=== PATIENT | male | born 1985 | race Two or more races ===

== ENCOUNTER 2025-01-19 06:09 | Emergency (ER) | payer MEDICAID, SELFPAY ==
[2025-01-19 06:11] VITALS: BMI 31.9
[2025-01-19 06:18] VITALS: BP 135/88; PULSE 64; RESP 18; TEMP 36.6; O2SAT 98
[2025-01-19 06:39] LABS: Collection Type, Urine Clean Catch; Squamous Epithelial Cell,Urine 0 /hpf (0-5); WBC,Urine 0 /hpf (0-5)
--- NOTE | 2025-01-19 06:44 | PC.SS ---
SS follow up note; SS set up transportation for patient to get CT Scan at 1500 with [facility].
[2025-01-19 06:47] LABS: Bilirubin,Urine Negative (Negative); Blood,Urine Negative (Negative); Clarity,Urine Clear (Clear/Hazy); Color,Urine Lt-Yellow (Lt Yel-Yel); Culture Indicated,Urine Not Indicated; Glucose, Urine Negative (Negative); Ketones,Urine Negative (Negative); Leukocyte Esterase,Urine Negative (Negative); Nitrite,Urine Negative (Negative); Protein,Urine Negative (Neg - Trace); RBC,Urine < 1 /hpf (0-3); Specific Gravity,Urine 1.016 (1.001-1.035); Urobilinogen,Urine Negative mg/dL (0.0-1.0)
[2025-01-19 07:20] LABS: Basophils % (Auto) 1 % (0-2.5); Eosinophils # (Auto) 0.2 Thou/mm3 (0.0-0.5); Eosinophils % (Auto) 4 % (0-10); Hematocrit 48.9 % (41.0-53.0); Hemoglobin 16.8 g/dL (13.5-16.0); Immature Granulocytes % (Auto) 1 % (0-0); Immature Granulocytes Auto 0.03 Thou/mm3 (0.00-0.00); Lymphocytes # (Auto) 1.3 Thou/mm3 (1.0-4.8); Lymphocytes % (Auto) 21 % (10-50); Mean Corpuscular HGB Conc 34.4 g/dl (31.0-37.0); Mean Corpuscular Hemoglobin 30.1 pg (25.0-35.0); Mean Corpuscular Volume 88 fL (80-100); Monocytes # (Auto) 0.5 Thou/mm3 (0.0-0.8); Monocytes % (Auto) 9 % (0-12); Neutrophils # (Auto) 3.9 Thou/mm3 (1.8-7.7); Neutrophils % (Auto) 65 % (37-80); Nucleated Red Blood Cell % 0 /100 WBC (0); Platelet Count 278 Thou/mm3 (140-440); RDW Standard Deviation 42.4 fL (35.1-43.9); Red Blood Count 5.59 Miln/mm3 (4.50-5.90)
[2025-01-19 07:43] LABS: Alanine Aminotransferase 20 U/L (10-49); Albumin, Serum 4.5 gm/dL (3.5-5.0); Albumin/Globulin Ratio 1.6 (1.2-2.2); Alkaline Phosphatase 71 U/L (46-116); Anion Gap 7 (7-16); Aspartate Amino Transferase 17 U/L (0-34); BUN/Creatinine Ratio 17 Ratio (12-20); Bilirubin,Total 0.9 mg/dL (0.3-1.2); Blood Urea Nitrogen 15 mg/dL (9-23); Calcium 9.1 mg/dL (8.3-10.6); Calcium (Corrected) 9.1 mg/dL (8.5-10.1); Carbon Dioxide 26.6 mMol/L (20.0-31.0); Chloride 104 mMol/L (98-107); Creatinine (Component) 0.9 mg/dL (0.6-1.3); Estimated Creatinine Clearance 120.9 mL/min (>60); Globulin 2.8 gm/dL (2.3-3.5); Glucose 106 mg/dL (74-106); Lipase 37 U/L (12-53); Osmolality,Calculated 276 (275-295); Potassium 4.4 mMol/L (3.4-5.1); Sodium 138 mMol/L (136-145); Total Protein 7.3 gm/dL (5.7-8.2); eGFR > 60 See Note
--- NOTE | 2025-01-19 08:19 | EDNOTE_ITS ---
<Statement entered by Shayla Andre MD - 01/19/25 16:04> As co-signing physician, I was present and available for consult prn. I concur with the plan and care as documented by the midlevel provider. ED Abdominal Pain RME/HPI General Chief Complaint: Abdominal Pain Stated complaint: LOWER ABD PAIN RADAITING TO RIGHT LOWER BACK Time seen by provider: 01/19/25 06:15 Arrival date/time: 01/19/25 06:09 39-year-old male with medical history significant for appendectomy presents emergency department today for complaints of a 1 to 2-week history of abdominal pain. Limitations: no limitations Related Data Previous Rx's ?Medication ?Instructions ?Recorded cephalexin 500 mg capsule 500 mg PO BID #20 caps 02/05 Allergies Allergy/AdvReac Type Severity Reaction Status Date / Time No Known Allergies Allergy Verified 01/19/25 06:10 Review of Systems Review of Systems Systems Reviewed: All systems reviewed, normal except as documented Constitutional Constitutional: Reports system reviewed and no additional complaints, except as documented, Denies fever(s) and Denies headache(s) Eyes Eyes: Reports system reviewed and no additional complaints, except as documented and Denies blurry vision ENT Ears, Nose, Mouth, and Throat: Reports system reviewed and no additional complaints, except as documented, Denies headache(s), Denies nasal congestion and Denies nasal discharge Cardiovascular Cardiovascular: Reports system reviewed and no additional complaints, except as documented, Denies chest pain and Denies dyspnea Respiratory Respiratory: Reports system reviewed and no additional complaints, except as documented, Denies chest congestion, Denies cough and Denies dyspnea Gastrointestinal Gastrointestinal: Reports system reviewed and no additional complaints, except as documented and Reports abdominal pain Integumentary/Breasts Skin/Breast: Reports system reviewed and no additional complaints, except as documented and Denies rash Neurologic Neurologic: Reports system reviewed and no additional complaints, except as documented, Reports as per HPI and Denies headache(s) Past Medical History Past Medical History CARDIAC: Negative Cardiac Disorders or Congestive Heart Failure RESPIRATORY: Negative Chronic Obstructive Pulmonary Disease (COPD) or Asthma GENITOURINARY: Negative Renal Disease ENDOCRINE: Negative Diabetes Mellitus Type 1 or Diabetes Mellitus Type 2 HEMATOLOGIC: Negative Sickle Cell Disease Social History SMOKING STATUS: Never smoker ED Exam General Limitations: Present no limitations General appearance: Present alert and in no apparent distress Head Head exam: Present atraumatic, normocephalic and normal inspection Eye Eye exam: Present normal appearance, PERRL and EOMI; Absent conjunctival injection ENT ENT exam: Present normal exam, normal oropharynx and mucous membranes moist Neck Neck exam: Present normal inspection, full ROM and trachea midline Chest Chest inspection: Present normal inspection and symmetric chest wall rise Respiratory Respiratory exam: Present normal lung sounds bilaterally; Absent respiratory distress Cardiovascular Cardiovascular exam: Present regular rate, normal rhythm and normal heart sounds Abdominal Exam Abdominal exam: Present soft and normal bowel sounds; Absent distention, tenderness, guarding, rebound or rigidity Extremities Exam Extremities exam: Present normal inspection and full ROM Back Exam Back exam: Present normal inspection and full ROM Neurological Exam Neurological exam: Present alert, oriented X3, CN II-XII intact, normal gait and reflexes normal; Absent motor sensory deficit Psychiatric Psychiatric exam: Present normal affect and normal mood Skin Skin exam: Present warm, dry, intact and normal color; Absent rash Course Quality Measures none Orders Category Date Time Status CT abdomen pelvis wo con Stat Exams 01/19/25 06:22 Ordered CBC Stat Lab 01/19/25 07:14 Completed Comprehensive Metabolic Panel Stat Lab 01/19/25 07:14 Completed Lipase Stat Lab 01/19/25 07:14 Completed UA, C/S IF [Urinalysis, C/S if Indicated] Stat Lab 01/19/25 06:30 Completed Vital Signs Vital signs: Vital Signs Temperature 97.9 F 01/19/25 06:18 Pulse Rate 64 01/19/25 06:18 Respiratory Rate 18 01/19/25 06:18 Blood Pressure 135/88 H 01/19/25 06:18 Pulse Oximetry (%) 98 01/19/25 06:18 Oxygen Delivery Method Room Air 01/19/25 06:18 O2 saturation 98% room air within normal limits Abdominal Pain MDM MDM Narrative MDM Narrative:: 39-year-old male with medical history significant for appendectomy presents emergency department today for complaints of a 1 to 2-week history of abdominal pain. On exam patient does not appear ill or toxic in no acute distress patient has soft nontender abdomen patient walks with steady gait Lab work obtained no acute emergent findings noted Initially CT scan was ordered but I was informed by nursing staff that the patient CT scan would not get done till 3 PM today as a patient we had to be transported across the street as the main CT scan in the hospital is down. I did give the patient the option of waiting patient reports he rather go home at this time to follow-up on an outpatient basis and should his symptoms persist he will return for reevaluation Patient data External records reviewed:: [facility] previous records Clinical information provided by:: patient Social determinants that could affect healthcare access:: none Patient has the following chronic illnesses:: None How is presenting disease/condition affected by chronic disease/condition?: no chronic disease Evaluation data The following diagnostics were reviewed and interpreted by me:: lab results Lab and/or radiology exams considered but not ordered:: Labs obtained Interpretation Summary: Reviewed by me Medications / Prescriptions Medications or Prescriptions considered but not ordered:: No meds Medication administrations:: No meds Consultations Consultation(s) initiated? (list below): No Diagnosis Differential diagnosis abdominal pain: abdominal pain, calculus of kidney, constipation, pancreatitis and small bowel obstruction Most likely diagnosis given after review of the tests above:: Abdominal pain Admission Indicated Admission indicated?: not indicated Admission Request Was there a request for admission?: No Disposition Plan Disposition Plan: Discharge Discharge Attestation Discharge Attestation: The patient and all family members were given an opportunity to ask questions and understood the discharge instructions. Discharge instructions specifically effects, indications for sooner follow up or return to the emergency department, and the expected course of current diagnosis. Patient condition: Stable Discharge Plan Plan Patient Disposition: HOME (Self Care) Disposition Comment: Stable Prescriptions/Referrals Prescriptions/Med Rec: No Action cephalexin 500 mg capsule 500 mg PO BID Qty: 20 0RF Referrals: Ramin Marcial MD [Primary Care Provider] - In 1 week Problem List Clinical Impression: Abdominal pain Patient/Caregiver Discharge Instructions Education Materials: Measuring Your Pain Additional Instructions: Please follow up with your primary care doctor in the next 24-48hrs for any worsening symptoms return here immediately If your symptoms persist or worsen I do encourage you to return for reevaluation possible CT scan Print Language: Slovenian Stand Alone Forms: Shelly Award Info., Patient Portal Info Letter PA/CREEL SELECTOR Supervising Physician PA/ELBERT Supervising Physician: Dr. ANDRE
== END 2025-01-19 08:29 | disposition home or self-care (01) ==
PROVIDERS: Nurse Practitioner Primary Care; Emergency Provider Emergency Medicine; PCP Family Medicine
DX: R10.30 Lower abdominal pain, unspecified (principal); Z90.49 Acquired absence of other specified parts of digestive tract
CPT/HCPCS: 36415; 80053; 81001; 83690; 85025; 99284

== ENCOUNTER 2025-01-22 05:32 | Emergency (ER) | payer MEDICAID, SELFPAY ==
[2025-01-22 05:32] VITALS: BMI 31.9
[2025-01-22 05:39] VITALS: BP 138/84; PULSE 66; RESP 18; TEMP 36.6; O2SAT 96
--- NOTE | 2025-01-22 05:47 | PD.EDRME ---
Rapid Medical Screening Exam [facility] Arrival date/time: 01/22/25 05:32 39M with history of appendectomy presents to ED with worsening ab pain and some non-bloody diarrhea and N/V. Patient was told to come back because CT was done a few days ago. Chief Complaint: Abdominal Pain Vital signs: Vital Signs Temperature 97.8 F 01/22/25 05:39 Pulse Rate 66 01/22/25 05:39 Respiratory Rate 18 01/22/25 05:39 Blood Pressure 138/84 H 01/22/25 05:39 Pulse Oximetry (%) 96 01/22/25 05:39 Oxygen Delivery Method Room Air 01/22/25 05:39
[2025-01-22 06:20] LABS: Basophils % (Auto) 1 % (0-2.5); Eosinophils # (Auto) 0.2 Thou/mm3 (0.0-0.5); Eosinophils % (Auto) 3 % (0-10); Hemoglobin 16.5 g/dL (13.5-16.0); Immature Granulocytes % (Auto) 0 % (0-0); Immature Granulocytes Auto 0.01 Thou/mm3 (0.00-0.00); Lymphocytes # (Auto) 1.6 Thou/mm3 (1.0-4.8); Lymphocytes % (Auto) 25 % (10-50); Mean Corpuscular HGB Conc 34.4 g/dl (31.0-37.0); Mean Corpuscular Hemoglobin 29.7 pg (25.0-35.0); Mean Corpuscular Volume 87 fL (80-100); Monocytes # (Auto) 0.5 Thou/mm3 (0.0-0.8); Monocytes % (Auto) 8 % (0-12); Neutrophils # (Auto) 4.1 Thou/mm3 (1.8-7.7); Neutrophils % (Auto) 63 % (37-80); Nucleated Red Blood Cell % 0 /100 WBC (0); Platelet Count 281 Thou/mm3 (140-440); RDW Standard Deviation 41.3 fL (35.1-43.9); Red Blood Count 5.55 Miln/mm3 (4.50-5.90); White Blood Count 6.6 Thou/mm3 (3.8-10.6)
[2025-01-22 06:39] LABS: Alanine Aminotransferase 23 U/L (10-49); Albumin, Serum 4.6 gm/dL (3.5-5.0); Albumin/Globulin Ratio 1.6 (1.2-2.2); Alkaline Phosphatase 77 U/L (46-116); Anion Gap 7 (7-16); Aspartate Amino Transferase 18 U/L (0-34); BUN/Creatinine Ratio 15 Ratio (12-20); Bilirubin,Total 0.5 mg/dL (0.3-1.2); Blood Urea Nitrogen 15 mg/dL (9-23); Calcium 9.1 mg/dL (8.3-10.6); Calcium (Corrected) 9.1 mg/dL (8.5-10.1); Carbon Dioxide 28.2 mMol/L (20.0-31.0); Chloride 105 mMol/L (98-107); Estimated Creatinine Clearance 108.8 mL/min (>60); Globulin 2.8 gm/dL (2.3-3.5); Glucose 98 mg/dL (74-106); Lipase 47 U/L (12-53); Osmolality,Calculated 280 (275-295); Potassium 4.2 mMol/L (3.4-5.1); Sodium 140 mMol/L (136-145); Total Protein 7.4 gm/dL (5.7-8.2); eGFR > 60 See Note
--- NOTE | 2025-01-22 07:22 | XR_ITS ---
Examination: CT abdomen and pelvis without contrast. Coronal 3-D reconstructions. Sagittal 2-D reconstructions. Date and time of exam:January 22, 2025 at 0759 hrs. Comparison February 05, 2022 Indications: Lower pelvic pain beginning one week ago CTDI: vol (mGy): 9.92 DLP: (mGycm): 591 Technique: Axial images of the abdomen have been obtained, 3 mm slice thickness Intravenous contrast material has not been administered. Low dose protocols were performed. One or more of the following dose reduction techniques were used; automated exposure control, adjustment of the mA and/or KV according to patient size, use of iterative reconstruction technique. Findings: No focal liver or splenic lesion No pancreatic mass or peripancreatic edema Absent appendix No renal or ureteral calculi, no hydronephrosis No bladder mass Impression: No acute process
[2025-01-22 07:53] VITALS: BP 128/83; PULSE 68; RESP 18; TEMP 36.7; O2SAT 96
--- NOTE | 2025-01-22 08:47 | PRELIM_ITS ---
CT abdomen and pelvis without intravenous or oral contrast. Axial images with coronal and sagittal reconstructions. Findings: Clear lung bases. Liver, gallbladder, spleen, adrenal glands, pancreas and kidneys are unremarkable. Post appendectomy. The urinary bladder is decompressed, limiting evaluation. No urinary tract stone or obstruction is identified. No free intraperitoneal air or fluid. The abdominal wall is unremarkable. Bowel caliber is normal. No acute osseous process. Impression: No acute process of the abdomen or pelvis on this noncontrast examination. Report Electronically Signed By: Manpreet Greenwood 01/22/2025 8:46:37 AM [EST]
--- NOTE | 2025-01-22 11:33 | PD.EDABDPN ---
ED Abdominal Pain RME/HPI General Chief Complaint: Abdominal Pain Stated complaint: ABD PAIN Time seen by provider: 01/22/25 07:21 Arrival date/time: 01/22/25 05:32 39M with history of appendectomy presents to ED with worsening ab pain and some non-bloody diarrhea and N/V. Patient was told to come back because CT was down a few days ago. Limitations: no limitations RME / HPI RME / HPI narrative: 01/22/25 05:32 39M with history of appendectomy presents to ED with worsening ab pain and some non-bloody diarrhea and N/V. Patient was told to come back because CT was done a few days ago. Related Data Previous Rx's ?Medication ?Instructions ?Recorded cephalexin 500 mg capsule 500 mg PO BID #20 caps 02/05/22 Allergies Allergy/AdvReac Type Severity Reaction Status Date / Time No Known Allergies Allergy Verified 01/19/25 06:10 Review of Systems Review of Systems Systems Reviewed: All systems reviewed, normal except as documented Constitutional Constitutional: Reports system reviewed and no additional complaints, except as documented, Denies fever(s) and Denies headache(s) Eyes Eyes: Reports system reviewed and no additional complaints, except as documented and Denies blurry vision ENT Ears, Nose, Mouth, and Throat: Reports system reviewed and no additional complaints, except as documented, Denies headache(s), Denies nasal congestion and Denies nasal discharge Cardiovascular Cardiovascular: Reports system reviewed and no additional complaints, except as documented, Denies chest pain and Denies dyspnea Respiratory Respiratory: Reports system reviewed and no additional complaints, except as documented, Denies chest congestion, Denies cough and Denies dyspnea Gastrointestinal Gastrointestinal: Reports system reviewed and no additional complaints, except as documented, Reports abdominal pain, Reports loose stools and Denies nausea Integumentary/Breasts Skin/Breast: Reports system reviewed and no additional complaints, except as documented and Denies rash Neurologic Neurologic: Reports system reviewed and no additional complaints, except as documented, Reports as per HPI and Denies headache(s) Past Medical History Past Medical History CARDIAC: Negative Cardiac Disorders or Congestive Heart Failure RESPIRATORY: Negative Chronic Obstructive Pulmonary Disease (COPD) or Asthma GENITOURINARY: Negative Renal Disease ENDOCRINE: Negative Diabetes Mellitus Type 1 or Diabetes Mellitus Type 2 HEMATOLOGIC: Negative Sickle Cell Disease Social History SMOKING STATUS: Never smoker ED Exam General Limitations: Present no limitations General appearance: Present alert and in no apparent distress Head Head exam: Present atraumatic Eye Eye exam: Present normal appearance, PERRL and EOMI ENT ENT exam: Present normal exam, normal oropharynx and mucous membranes moist Neck Neck exam: Present normal inspection, full ROM and trachea midline Chest Chest inspection: Present normal inspection and symmetric chest wall rise Respiratory Respiratory exam: Present normal lung sounds bilaterally Cardiovascular Cardiovascular exam: Present regular rate, normal rhythm and normal heart sounds Abdominal Exam Abdominal exam: Present soft and normal bowel sounds Extremities Exam Extremities exam: Present normal inspection and full ROM Back Exam Back exam: Present normal inspection and full ROM Neurological Exam Neurological exam: Present alert, oriented X3 and CN II-XII intact Psychiatric Psychiatric exam: Present normal affect and normal mood Skin Skin exam: Present warm, dry, intact and normal color Course Quality Measures none Orders Category Date Time Status Insert IV NOW Care 01/22/25 05:[address] abdomen pelvis wo con Stat Exams 01/22/25 07:22 Completed CBC Stat Lab 01/22/25 06:08 Completed CMP [Comprehensive Metabolic Panel] Stat Lab 01/22/25 06:08 Completed Lipase Stat Lab 01/22/25 06:08 Completed Vital Signs Vital signs: Vital Signs Temperature 97.8 F 01/22/25 05:39 Pulse Rate 66 01/22/25 05:39 Respiratory Rate 18 01/22/25 05:39 Blood Pressure 138/84 H 01/22/25 05:39 Pulse Oximetry (%) 96 01/22/25 05:39 Oxygen Delivery Method Room Air 01/22/25 05:39 O2 saturation 96% on room air within limits Abdominal Pain MDM MDM Narrative MDM Narrative:: 39M with history of appendectomy presents to ED with worsening ab pain and some non-bloody diarrhea and N/V. Patient was told to come back because CT was down a few days ago. I do remember this patient from last visit at that time the CT scanner was down patient was requesting a CT at that time. Patient opted to leave at that time and reports that he would return should his symptoms persist or worsen Patient presents back today because his symptoms persist patient reports generalized abdominal pain patient cannot pinpoint the pain Lab work as well as imaging obtained no acute emergent findings noted Patient discharged home in no distress to follow-up with primary care doctor in the next 24 to 48 hours no regular referral to GI and for any worsening symptoms to return to the ER immediately Patient data External records reviewed:: [facility] previous records Clinical information provided by:: patient Social determinants that could affect healthcare access:: none Patient has the following chronic illnesses:: None How is presenting disease/condition affected by chronic disease/condition?: no chronic disease Evaluation data The following diagnostics were reviewed and interpreted by me:: lab results and radiology exam(s) Lab and/or radiology exams considered but not ordered:: Labs radiology obtained Interpretation Summary: Reviewed by me Medications / Prescriptions Medications or Prescriptions considered but not ordered:: No meds Medication administrations:: Meds given Consultations Consultation(s) initiated? (list below): No Diagnosis Differential diagnosis abdominal pain: abdominal pain, calculus of kidney, constipation, pancreatitis and small bowel obstruction Most likely diagnosis given after review of the tests above:: Abdominal pain Admission Indicated Admission indicated?: not indicated Admission Request Was there a request for admission?: No Disposition Plan Disposition Plan: Discharge Discharge Attestation Discharge Attestation: The patient and all family members were given an opportunity to ask questions and understood the discharge instructions. Discharge instructions specifically effects, indications for sooner follow up or return to the emergency department, and the expected course of current diagnosis. Patient condition: Stable Discharge Plan Plan Patient Disposition: HOME (Self Care) Disposition Comment: Stable Prescriptions/Referrals Prescriptions/Med Rec: No Action cephalexin 500 mg capsule 500 mg PO BID Qty: 20 0RF Referrals: Ramin Marcial MD [Primary Care Provider] - In 1 week Problem List Clinical Impression: Abdominal pain Patient/Caregiver Discharge Instructions Education Materials: Abdominal Pain Additional Instructions: Please follow-up with your primary care doctor for referral to GI for worsening symptoms or concerns return immediately Print Language: Malay Stand Alone Forms: Shelly Award Info., Work/School Release, Patient Portal Info Letter DAYDAY/ELBERT Supervising Physician DAYDAY/ELBERT Supervising Physician: Dr finch
== END 2025-01-22 11:53 | disposition home or self-care (01) ==
PROVIDERS: Physician Assistant; Emergency Provider Emergency Medicine; PCP Family Medicine
DX: R10.9 Unspecified abdominal pain (principal)
CPT/HCPCS: 36415; 74176; 80053; 83690; 85025; 99284

== ENCOUNTER 2025-09-22 11:03 | Emergency (ER) | payer MEDICAID, SELFPAY ==
[2025-09-22 11:31] VITALS: BP 127/87; PULSE 75; RESP 16; TEMP 36.9; O2SAT 96; BMI 31.7
--- NOTE | 2025-09-22 11:56 | PD.EDMALE ---
ED Male Genitalurinary RME/HPI General Chief complaint: Urogenital-Male Stated complaint: Left abdominal pain X 2 weeks, dripping from penis Time Seen by Provider: 09/22/25 11:56 Arrival date/time: 09/22/25 11:03 RME / HPI RME / HPI Narrative: Healthy 40-year-old male who saw his primary doctor yesterday for some left-sided flank pain associated with urinary frequency which has been ongoing for about 6 months, he had a negative UA yesterday with his PCP yesterday. Patient states he had an ultrasound at time of onset and this was unremarkable as well. Denies any fever, nausea, vomiting, diarrhea. Related Data Previous Rx's ?Medication ?Instructions ?Recorded cephalexin 500 mg capsule 500 mg PO BID #20 caps 02/05/22 levofloxacin 500 mg tablet 500 mg PO QDAY #7 tabs 09/22/25 Allergies Allergy/AdvReac Type Severity Reaction Status Date / Time No Known Allergies Allergy Verified 09/22/25 11:08 ED Exam Narrative Physical exam: Constitutional: Patient alert and oriented. Well appearing. No acute distress. Not toxic appearing. Head: Normocephalic, atraumatic. Eyes: Periorbital regions bilaterally normal to inspection. Conjunctiva clear bilaterally. Sclera anicteric bilaterally. Pupils equal, round, reactive to light bilaterally. Extraocular movements intact bilaterally. Mouth/Throat: Mucous membranes moist. No stridor or muffled voice. No trismus. Handling secretions without difficulty. Airway widely patent. Neck: Supple. Trachea midline. No JVD. No nuchal rigidity. Normal range of motion. Respiratory: Normal effort. No accessory muscle use or respiratory distress. Lungs clear to auscultation bilaterally without rhonchi, wheezes, or crackles. Cardiovascular: RRR. Normal S1/S2. No murmurs or rubs. Radial pulses intact bilaterally. Abdomen: Soft. Non-distended. Positive mild left lower quadrant tenderness to palpation. No pulsatile mass. No guarding or rebound. Negative Hickey?s sign. Negative McBurney?s point tenderness. Negative Rovsing?s. Back: No midline tenderness or step-offs. +L CVA TTP. : No scrotal edema, tenderness, or rashes bilaterally. Patient is uncircumcised. No urethral discharge. Positive mild perineal tenderness. No anal corrugation tenderness. Upper Extremities: No gross deformities. Lower Extremities: No gross deformities. No edema or calf tenderness. Neuro: Speech normal. No gross motor or sensory deficits to upper or lower extremities bilaterally. GCS 15. CN II?XII grossly intact. Skin: Warm, dry, normal color. Psych: Normal affect. Cooperative. Normal insight. Course Course Course Narrative: MDM: The patient presents with abdominal pain without definite explanation found on evaluation today. CT scan is concerning for mild perinephric stranding bilaterally without acute urologic obstruction as well as a fat-containing umbilical hernia. However there is no other signs of acute intra-abdominal or pelvic abnormality however, there are no signs of peritonitis or other life-threatening or serious etiology. UA is unremarkable and CBC and CMP are relatively unremarkable aside from hemoglobin being minimally elevated 17. Risk and benefits of empiric treatment for STI discussed with patient who is requesting treatment for gonorrhea chlamydia. I considered prostatitis as well however given lack of fever this is unlikely. Given patient has possible evidence of mild or early pyelonephritis based on CT scan I will treat patient with Levaquin and ceftriaxone accordingly to additionally cover him for gonorrhea and chlamydia. I considered admission; however, given negative work up and imaging, admission is not indicated. Serial abdominal exams were benign throughout the ED stay, and the patient tolerated oral intake without difficulty. The inherent uncertainty with undifferentiated abdominal pain was emphasized, and strict return precautions were provided. The patient has been instructed that this presentation could represent an early acute abdominal process. The plan is for mandatory re-evaluation within 24 hours and immediate return for worsening, persistence, or change in symptoms. The patient may follow up with their primary care provider or return to the ED as appropriate. The patient appears stable for discharge at this time. Patient also to follow-up with urologist this week for further evaluation. Quality Measures none Orders Category Date Time Status NPO NOW Care 09/22/25 13:20 Active Diet NPO (NOW) Diet 09/22/25 13:[address] abdomen pelvis wo con Stat Exams 09/22/25 13:20 Completed CBC Stat Lab 09/22/25 13:24 Completed CMP [Comprehensive Metabolic Panel] Stat Lab 09/22/25 13:24 Completed Lipase Stat Lab 09/22/25 13:24 Completed Urinalysis Stat Lab 09/22/25 13:55 Completed Urine Culture Stat Lab 09/22/25 13:55 Received Ketorolac Inj [Toradol Inj] Med 09/22/25 13:20 Discontinued 30 mg IM X1 ONE Ondansetron Odt [Zofran Odt] Med 09/22/25 13:20 Discontinued 4 mg PO X1 ONE cefTRIAXone [Rocephin] 1,000 mg Med 09/22/25 17:46 Ordered Lidocaine 1% Pf Vial 5ml [Xylocaine 1% Pf 5 ml] 2.1 ml IM X1 Reevaluation(s) Reevaluation #1: At the time of reassessment prior to discharge, the patient remains alert and oriented ?3 with GCS 15. Vitals are normal, pain is controlled, and the patient is tolerating oral intake without nausea or vomiting. The patient is agreeable to discharge and verbalizes understanding of the diagnosis, studies, treatment plan, medications (including side effects/precautions), and strict ER return precautions as discussed in the ED. All concerns were addressed, and the patient is comfortable with the plan. Time: 18:00 Vital Signs Vital signs: Vital Signs Temperature 98.5 F 09/22/25 11:31 Pulse Rate 75 09/22/25 11:31 Respiratory Rate 16 09/22/25 11:31 Blood Pressure 127/87 H 09/22/25 11:31 Pulse Oximetry (%) 96 09/22/25 11:31 Oxygen Delivery Method Room Air 09/22/25 11:31 Urogenital - Male MDM Narrative MDM Narrative:: 40-year-old male presents to the ER complaining of left-sided flank pain for the past 6 months. Patient data External records reviewed:: [facility] previous records Clinical information provided by:: patient Social determinants that could affect healthcare access:: none Patient has the following chronic illnesses:: As noted How is presenting disease/condition affected by chronic disease/condition?: uneffected by Evaluation data The following diagnostics were reviewed and interpreted by me:: other (specify) Lab and/or radiology exams considered but not ordered:: Additional Labs and radiology considered, but not ordered as they were not clinically indicated at this time. Interpretation Summary: As noted Medications / Prescriptions Medications or Prescriptions considered but not ordered:: I ordered medications based on the patient?s clinical needs and assessment, as documented in the chart. For medications not prescribed, they were not indicated for the patient's current condition, and I determined they were unnecessary at this time to avoid potential risks or complications. Medication administrations:: Medication Administration History Ceftriaxone Sodium 1,000 mg/ (Lidocaine HCl 2.1 ml) 0 mg IM X1 ONE Stop: 09/22/25 17:47 Discontinued Medications Ketorolac Tromethamine (Ketorolac Inj 30 Mg/Ml Vial) 30 mg IM X1 ONE Stop: 09/22/25 13:21 Last Admin: 09/22/25 13:31 Dose: 30 mg Documented By: MARIFER Ondansetron HCl (Ondansetron Odt 4 Mg Tabrap) 4 mg PO X1 ONE; Protocol Stop: 09/22/25 13:21 Last Admin: 09/22/25 13:31 Dose: 4 mg Documented By: MARIFER As noted Consultations Consultation(s) initiated? (list below): No Diagnosis Urogenital Male Differential Diagnosis: urinary tract infection, urethritis and prostatitis Most likely diagnosis given after review of the tests above:: Pyelonephritis versus umbilical hernia without signs of incarceration and no bowel Admission Indicated Admission indicated?: not indicated Admission Request Was there a request for admission?: No Disposition Plan Disposition Plan: Discharge Discharge Attestation Discharge Attestation: The patient and all family members were given an opportunity to ask questions and understood the discharge instructions. Discharge instructions specifically effects, indications for sooner follow up or return to the emergency department, and the expected course of current diagnosis. Patient condition: Stable Discharge Plan Plan Patient Disposition: HOME (Self Care) Patient condition on transfer: Stable Prescriptions/Referrals Prescriptions/Med Rec: New levofloxacin 500 mg tablet 500 mg PO QDAY Qty: 7 0RF No Action cephalexin 500 mg capsule 500 mg PO BID Qty: 20 0RF Referrals: Ramin Marcial MD [Primary Care Provider, Family Practice] - In 1 week Problem List Clinical Impression: Acute pyelonephritis, Abdominal pain Patient/Caregiver Discharge Instructions Education Materials: ED Pyelonephritis, Male (Adult) Additional Instructions: Follow up with your primary medical doctor within 24 hours. Return to the Emergency Room immediately for any new, worsening, continuing symptoms or any concerns at all. Return to the Emergency Room within 24 hours if you are unable to follow up with your primary medical doctor within 24 hours. Follow-up with a urologist this week as well. Your primary care doctor will need to refer you to one. The antibiotics which I am prescribing you can cause tendon rupture please avoid strenuous activity for the next several months. Print Language: Portuguese Stand Alone Forms: Shelly Award Info., Patient Portal Info Letter PA/AMPOULE SEALER Supervising Physician PA/AMPOULE SEALER Supervising Physician: Dr. Waller
--- NOTE | 2025-09-22 13:20 | XR_ITS ---
Examination: CT abdomen and pelvis without contrast. Coronal 3-D reconstructions. Sagittal 2-D reconstructions. Date and time of exam: September 22, 2025, 1328 hours INDICATIONS: Periumbilical perirectal pain beginning 2 days ago, comparison January 22, 2025 CTDI: vol (mGy): 9.3 DLP: (mGycm): 600 Technique: Axial images of the abdomen have been obtained, 3 mm slice thickness Intravenous contrast material has not been administered. Low dose protocols were performed. One or more of the following dose reduction techniques were used; automated exposure control, adjustment of the mA and/or KV according to patient size, use of iterative reconstruction technique. Findings: No focal liver lesions or biliary tract dilatation Spleen pancreas unremarkable No gallstones 11 mm fat-containing umbilical hernia Minimal perinephric stranding No renal or ureteral calculi, no hydronephrosis Absent appendix No bowel obstruction diverticulitis or free air IMPRESSION: 11 mm fat-containing umbilical hernia No rectal wall thickening No perianal abscess
[2025-09-22] MEDS: ONDANSETRON ODT 4 MG TABRAP PO (13:31)
[2025-09-22] MEDS: KETOROLAC INJ 30 MG/ML VIAL IM (13:31)
[2025-09-22 13:38] LABS: Basophils # (Auto) 0.0 Thou/mm3 (0.0-0.2); Basophils % (Auto) 1 % (0-2.5); Eosinophils # (Auto) 0.1 Thou/mm3 (0.0-0.5); Eosinophils % (Auto) 2 % (0-10); Hematocrit 49.1 % (41.0-53.0); Hemoglobin 17.0 g/dL (13.5-16.0); Immature Granulocytes Auto 0.01 Thou/mm3 (0.00-0.00); Lymphocytes # (Auto) 1.3 Thou/mm3 (1.0-4.8); Lymphocytes % (Auto) 21 % (10-50); Mean Corpuscular HGB Conc 34.6 g/dl (31.0-37.0); Mean Corpuscular Hemoglobin 30.2 pg (25.0-35.0); Mean Corpuscular Volume 87 fL (80-100); Monocytes # (Auto) 0.5 Thou/mm3 (0.0-0.8); Monocytes % (Auto) 8 % (0-12); Neutrophils # (Auto) 4.4 Thou/mm3 (1.8-7.7); Neutrophils % (Auto) 69 % (37-80); Nucleated Red Blood Cell # 0.00 Thou/mm3 (0.00-0.00); Nucleated Red Blood Cell % 0 /100 WBC (0); Platelet Count 298 Thou/mm3 (140-440); RDW Standard Deviation 41.6 fL (35.1-43.9); Red Blood Count 5.62 Miln/mm3 (4.50-5.90); White Blood Count 6.4 Thou/mm3 (3.8-10.6)
[2025-09-22 13:52] LABS: Alanine Aminotransferase 38 U/L (10-49); Albumin, Serum 4.9 gm/dL (3.5-5.0); Albumin/Globulin Ratio 1.6 (1.2-2.2); Alkaline Phosphatase 71 U/L (46-116); Anion Gap 11 (7-16); Aspartate Amino Transferase 23 U/L (0-34); BUN/Creatinine Ratio 14 Ratio (12-20); Bilirubin,Total 0.4 mg/dL (0.3-1.2); Blood Urea Nitrogen 15 mg/dL (9-23); Calcium 9.4 mg/dL (8.3-10.6); Calcium (Corrected) 9.4 mg/dL (8.5-10.1); Carbon Dioxide 26.0 mMol/L (20.0-31.0); Chloride 103 mMol/L (98-107); Creatinine (Component) 1.1 mg/dL (0.6-1.3); Estimated Creatinine Clearance 97.7 mL/min (>60); Globulin 3.0 gm/dL (2.3-3.5); Glucose 105 mg/dL (74-106); Lipase 35 U/L (12-53); Osmolality,Calculated 280 (275-295); Potassium 4.1 mMol/L (3.4-5.1); Sodium 140 mMol/L (136-145); Total Protein 7.9 gm/dL (5.7-8.2); eGFR > 60 See Note
[2025-09-22 14:00] LABS: Collection Type, Urine Voided; Squamous Epithelial Cell,Urine 0 /hpf (0-5); WBC,Urine 0 /hpf (0-5)
[2025-09-22 14:04] LABS: Bilirubin,Urine Negative (Negative); Blood,Urine Negative (Negative); Clarity,Urine Clear (Clear/Hazy); Color,Urine Lt-Yellow (Lt Yel-Yel); Glucose, Urine Negative (Negative); Ketones,Urine Negative (Negative); Leukocyte Esterase,Urine Negative (Negative); Nitrite,Urine Negative (Negative); PH,Urine 6.0 (5.0-7.0); Protein,Urine Negative (Neg - Trace); RBC,Urine 1 /hpf (0-3); Specific Gravity,Urine 1.021 (1.001-1.035); Urobilinogen,Urine Negative mg/dL (0.0-1.0)
== END 2025-09-22 18:15 | disposition home or self-care (01) ==
PROVIDERS: Emergency Provider Physician Assistant; PCP Family Medicine
DX: N10 Acute pyelonephritis (principal)
CPT/HCPCS: 36415; 74176; 80053; 81001; 83690; 85025; 87086; 96372; 99283; J0696; J1885; J3490; Q0162

== ENCOUNTER 2025-10-04 10:52 | Emergency (ER) | payer MEDICAID, SELFPAY ==
--- NOTE | 2025-10-04 10:57 | EKG_ITS ---
[facility] Test Date: 2025-10-04 Pat Name: DAIN GILL Department: Room: - Gender: Male Healthcare Interpreter: : 1985 Requested By: Tyesha Fox Order Number: [id number] Reading MD: Tyesha Fox Measurements Intervals [place] Rate: 79 P: 39 MI: 184 QRS: 55 QRSD: 102 T: 42 QT: 348 QTc: 401 Interpretive Statements SINUS RHYTHM LOW QRS VOLTAGE IN PRECORDIAL LEADS [QRS DEFLECTION < 1.0 mV IN CHEST LEADS] NONSPECIFIC ST & T-WAVE ABNORMALITY No previous ECG available for comparison /store/S0/[id number]/ecg/[id number].pdf
[2025-10-04 11:03] VITALS: BP 141/89; PULSE 77; RESP 18; TEMP 36.8; O2SAT 95; BMI 31.6
--- NOTE | 2025-10-04 11:20 | XR_ITS ---
Examination: CT abdomen and pelvis without contrast. Coronal 3-D reconstructions. Sagittal 2-D reconstructions. Date and time of exam: October 04, 2025, 1128 hours, comparison September 22, 2025 INDICATIONS: Left upper abdominal pain with nausea vomiting diarrhea beginning 3 days ago CTDI: vol (mGy): 10.1 DLP: (mGycm): 617 Technique: Axial images of the abdomen have been obtained, 3 mm slice thickness Intravenous contrast material has not been administered. Low dose protocols were performed. One or more of the following dose reduction techniques were used; automated exposure control, adjustment of the mA and/or KV according to patient size, use of iterative reconstruction technique. Findings: No visualized liver or splenic lesion Fluid distended stomach No gallstones No pancreatic or adrenal mass No renal or ureteral calculi, no hydronephrosis Absent appendix 11 mm fat-containing umbilical hernia No bowel obstruction No diverticulitis Intact urinary bladder Transverse prostate dimension 4.0 cm Intact osseous structures IMPRESSION: Fluid distended stomach Negative for gallstones Negative for pancreatitis No renal or ureteral calculi, no hydronephrosis No bowel obstruction Consider hepatobiliary sonography follow-up
--- NOTE | 2025-10-04 11:20 | PD.EDRME ---
Rapid Medical Screening Exam RME Arrival date/time: 10/04/25 10:52 40-year-old male with no known medical history presents to the emergency room with a chief complaint of left upper quadrant and lumbar back pain x 3 days I have greeted and performed a focused initial assessment of this patient. A comprehensive ED assessment and evaluation of the patient, analysis of all test results, and completion of the medical decision making process will be conducted by additional ED providers. Chief Complaint: Chest Pain Vital signs: Vital Signs Temperature 98.2 F 10/04/25 11:03 Pulse Rate 77 10/04/25 11:03 Respiratory Rate 18 10/04/25 11:03 Blood Pressure 141/89 H 10/04/25 11:03 Pulse Oximetry (%) 95 10/04/25 11:03 Oxygen Delivery Method Room Air 10/04/25 11:03 Vital signs reviewed by provider: Yes Exam: There is no CVA tenderness with palpation Patient is complaining of left upper quadrant abdominal tenderness with palpation Clinical Impression: Pancreatitis/UTI/pyelonephritis
[2025-10-04 12:02] LABS: Basophils # (Auto) 0.0 Thou/mm3 (0.0-0.2); Basophils % (Auto) 1 % (0-2.5); Eosinophils # (Auto) 0.1 Thou/mm3 (0.0-0.5); Eosinophils % (Auto) 2 % (0-10); Hematocrit 47.3 % (41.0-53.0); Hemoglobin 16.3 g/dL (13.5-16.0); Immature Granulocytes Auto 0.01 Thou/mm3 (0.00-0.00); Lymphocytes # (Auto) 1.1 Thou/mm3 (1.0-4.8); Lymphocytes % (Auto) 17 % (10-50); Mean Corpuscular HGB Conc 34.5 g/dl (31.0-37.0); Mean Corpuscular Hemoglobin 29.5 pg (25.0-35.0); Mean Corpuscular Volume 86 fL (80-100); Monocytes # (Auto) 0.5 Thou/mm3 (0.0-0.8); Monocytes % (Auto) 7 % (0-12); Neutrophils # (Auto) 4.5 Thou/mm3 (1.8-7.7); Neutrophils % (Auto) 73 % (37-80); Nucleated Red Blood Cell # 0.00 Thou/mm3 (0.00-0.00); Nucleated Red Blood Cell % 0 /100 WBC (0); Platelet Count 280 Thou/mm3 (140-440); RDW Standard Deviation 39.6 fL (35.1-43.9); Red Blood Count 5.52 Miln/mm3 (4.50-5.90); White Blood Count 6.2 Thou/mm3 (3.8-10.6)
[2025-10-04 12:14] LABS: Collection Type, Urine Clean Catch; Squamous Epithelial Cell,Urine 0 /hpf (0-5)
[2025-10-04 12:18] LABS: Alanine Aminotransferase 40 U/L (10-49); Albumin, Serum 4.6 gm/dL (3.5-5.0); Albumin/Globulin Ratio 1.4 (1.2-2.2); Alkaline Phosphatase 73 U/L (46-116); Anion Gap 8 (7-16); BUN/Creatinine Ratio 15 Ratio (12-20); Bilirubin,Total 0.5 mg/dL (0.3-1.2); Blood Urea Nitrogen 16 mg/dL (9-23); Calcium 9.5 mg/dL (8.3-10.6); Calcium (Corrected) 9.5 mg/dL (8.5-10.1); Carbon Dioxide 30.0 mMol/L (20.0-31.0); Chloride 103 mMol/L (98-107); Creatinine (Component) 1.1 mg/dL (0.6-1.3); Estimated Creatinine Clearance 97.5 mL/min (>60); Globulin 3.3 gm/dL (2.3-3.5); Glucose 103 mg/dL (74-106); Lipase 40 U/L (12-53); Osmolality,Calculated 282 (275-295); Potassium 4.2 mMol/L (3.4-5.1); Sodium 141 mMol/L (136-145); Total Protein 7.9 gm/dL (5.7-8.2); eGFR > 60 See Note
[2025-10-04 12:21] LABS: Aspartate Amino Transferase < 8 U/L (0-34)
[2025-10-04 12:30] LABS: Bilirubin,Urine Negative (Negative); Blood,Urine Negative (Negative); Clarity,Urine Clear (Clear/Hazy); Color,Urine Lt-Yellow (Lt Yel-Yel); Glucose, Urine Negative (Negative); Ketones,Urine Negative (Negative); Leukocyte Esterase,Urine Negative (Negative); Nitrite,Urine Negative (Negative); PH,Urine 7.5 (5.0-7.0); Protein,Urine Trace (Neg - Trace); RBC,Urine < 1 /hpf (0-3); Specific Gravity,Urine 1.024 (1.001-1.035); Urobilinogen,Urine Negative mg/dL (0.0-1.0); WBC,Urine 1 /hpf (0-5)
--- NOTE | 2025-10-04 14:05 | EDNOTE_ITS ---
ED General RME/HPI General Chief complaint: Chest Pain Stated complaint: L) CHEST/SIDE PAIN, 04/22 Time Seen by Provider: 10/04/25 12:15 Arrival date/time: 10/04/25 10:52 RME / HPI RME / HPI narrative: 10/04/25 10:52 40-year-old male with no known medical history presents to the emergency room with a chief complaint of left upper quadrant and lumbar back pain x 3 days I have greeted and performed a focused initial assessment of this patient. A comprehensive ED assessment and evaluation of the patient, analysis of all test results, and completion of the medical decision making process will be conducted by additional ED providers. DR. PAIZ MAIN ED EVALUATION 40 year old male with no stated medical history presents to the ED for evaluation of left upper abdominal and left rib cage pain beginning 2 days ago Saturday around 11AM while walking in his home. Pain described as feeling uncomfortably sensation with occasional sharp pain, rating as moderate to severe. Pain worsens with taking a deep breath and somewhat improved with applying pressure to the rib cage area. Patient states the night prior to onset of pain, he had two episodes of vomiting though denies any forceful vomiting. Also reports coughing though has had a cough on/off for ~ 3 years and not any worse than his baseline. Patient mentioned 2 weeks ago he was evaluated here for lower abdominal pain that was accompanied by urinary hesitancy and dysuria. Evidently had also requested treatment for chlamydia and sent home with Levofloxacin. Patient states he had completed the 7-day course of antibiotics and the abdominal pain had improved. However, noticed the day after completing antibiotic the left upper abdominal/chest wall pain began. Denies any fevers, chills, cough, shortness of breath, diarrhea, constipation. Patient additionally reports changes in urinary habits beginning 6 months ago and is pending referral to see a urologist. Exam: There is no CVA tenderness with palpation Patient is complaining of left upper quadrant abdominal tenderness with palpation Impression: Pancreatitis/UTI/pyelonephritis Related Data Previous Rx's ?Medication ?Instructions ?Recorded cephalexin 500 mg capsule 500 mg PO BID #20 caps 02/05 levofloxacin 500 mg tablet 500 mg PO QDAY #7 tabs 09/13 naproxen 500 mg tablet 500 mg PO BID PRN pain #14 t abs 10/04/25 Allergies Allergy/AdvReac Type Severity Reaction Status Date / Time No Known Allergies Allergy Verified 10/04/25 10:55 Review of Systems Review of Systems Systems Reviewed: All systems reviewed, normal except as documented Past Medical History Past Medical History CARDIAC: Negative Cardiac Disorders or Congestive Heart Failure RESPIRATORY: Negative Chronic Obstructive Pulmonary Disease (COPD) or Asthma GENITOURINARY: Negative Renal Disease ENDOCRINE: Negative Diabetes Mellitus Type 1 or Diabetes Mellitus Type 2 HEMATOLOGIC: Negative Sickle Cell Disease Social History SMOKING STATUS: Never smoker ED Exam Narrative Physical exam: Constitutional: Awake, alert, nontoxic, no acute distress HEENT: Normocephalic, atraumatic, extraocular movements intact. Neck: Supple CV: Regular rate and rhythm, no murmurs/rubs/gallops Chest: There is point tenderness along the left 10th rib with reproducible symptoms, no swelling and no crepitus noted. Lungs: Clear to auscultation BL, no respiratory distress. Abd: Soft, mild epigastrium discomfort, ND, no HSM noted to palpation Extremities: No deformities, no edema noted Neuro: AAOx3, no acute neuro deficit noted. Skin: Warm, dry, intact Course Quality Measures none Orders Category Date Time Status EKG (ED ONLY) *Do not use* NOW Care 10/04/25 10:[address] abdomen pelvis wo con Stat Exams 10/04/25 11:20 Completed EKG (ED Only) Stat Exams 10/04/25 10:57 Draft CBC Stat Lab 10/04/25 11:38 Completed CMP [Comprehensive Metabolic Panel] Stat Lab 10/04/25 11:38 Completed Lipase Stat Lab 10/04/25 11:38 Completed UA [Urinalysis] Stat Lab 10/04/25 12:00 Completed Urine Culture Stat Lab 10/04/25 12:00 Received Ketorolac Inj [Toradol Inj] Med 10/04/25 11:20 Discontinued 30 mg IM X1 ONE Ketorolac Inj [Toradol Inj] Med 10/04/25 14:36 Discontinued 30 mg IM X1 ONE Vital Signs Vital signs: Vital Signs Temperature 98.2 F 10/04/25 11:03 Pulse Rate 77 10/04/25 11:03 Respiratory Rate 18 10/04/25 11:03 Blood Pressure 141/89 H 10/04/25 11:03 Pulse Oximetry (%) 95 10/04/25 11:03 Oxygen Delivery Method Room Air 10/04/25 11:03 Pulse ox is 95% on room air which is adequate. Discharge Plan Plan Patient Disposition: HOME (Self Care) Patient condition on transfer: Stable Prescriptions/Referrals Prescriptions/Med Rec: New naproxen 500 mg tablet 500 mg PO BID PRN (Reason: pain) Qty: 14 0RF No Action cephalexin 500 mg capsule 500 mg PO BID Qty: 20 0RF levofloxacin 500 mg tablet 500 mg PO QDAY Qty: 7 0RF Referrals: Ramin Marcial MD [Primary Care Provider, Family Practice] - In 1 week Problem List Clinical Impression: Chest wall muscle strain, Left-sided chest wall pain Patient/Caregiver Discharge Instructions Education Materials: Self-Care for Strains and Sprains, ED Chest Wall Pain, Costochondritis Additional Instructions: Some general health principles that can help you are the [place] principles: Nutrition (eat a plant-based diet, avoiding meats in general, avoiding highly processed foods) Exercise (Daily exercise/walks as tolerated) Water (Drink adequate fresh water to maintain hydration, concentrating on water rather than on soda, coffee, tea, juice, etc for hydration) [place] (Spend time - 15-20 minutes or so with 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 and late evening sun for Vitamin D health benefits) [place] (Avoid alcohol, illicit drugs, caffeinated beverages, smoking, etc) Air (Deep breathing exercises in the early mornings in fresh air) Rest (Adequate rest at night, going to bed a few hours before midnight and avoiding all screens/television/loud music in the time right before going to bed, also avoiding heavy meals just prior to going to bed) Trust in God (Spend time daily in Bible study and prayer - health benefits in contemplation of God's true character) Additional resources that can benefit: www.[email or web address].com, look under resources and seminars. Another good website is [email or web address] Print Language: Amharic Stand Alone Forms: Shelly Award Info., Patient Portal Info Letter MDM Narrative MDM hospital course (for use when minimal MDM required): 40 year old male presents with left upper abdominal and left rib cage pain that began 2 days prior while walking at home. ED evaluation including labs and i maging was unremarkable. Physical exam findings are most consistent with musculoskeletal/chest wall pain. Given reassuring workup and exam, plan is symptomatic management with NSAIDs and outpatient follow-up with PCP. Patient also advised to follow up with urology for reported urinary symptoms ongoing for approximately 6 months. Medical Records reviewed [facility] Meds/Rx considered, not ordered None Labs/Rad/Tests considered, not ordered None Chronic Illness/Social Conditions which may negatively complicate care or outcome(s)-explain: None or not applicable EKG Interpretation EKG #1: EKG Interpretation: EKG @ 11:02h, interpreted by me, normal sinus rhythm, rate 79, no STEMI. Labs Labs: see narrative above Imaging Imaging Interpretation(s): Ordering Physician: Gary Joiner Date of Service: 10/04/25 Procedure(s): CT abdomen pelvis wo con Accession Number(s): [id number] cc: Gary Joiner; Ramin Marcial MD; Garrick Wylie MD~ Examination: CT abdomen and pelvis without contrast. Coronal 3-D reconstructions. Sagittal 2-D reconstructions. Date and time of exam: October 04, 2025, 1128 hours, comparison September 22, 2025 INDICATIONS: Left upper abdominal pain with nausea vomiting diarrhea beginning 3 days ago CTDI: vol (mGy): 10.1 DLP: (mGycm): 617 Technique: Axial images of the abdomen have been obtained, 3 mm slice thickness Intravenous contrast material has not been administered. Low dose protocols were performed. One or more of the following dose reduction techniques were used; automated exposure control, adjustment of the mA and/or KV according to patient size, use of iterative reconstruction technique. Findings: No visualized liver or splenic lesion Fluid distended stomach No gallstones No pancreatic or adrenal mass No renal or ureteral calculi, no hydronephrosis Absent appendix 11 mm fat-containing umbilical hernia No bowel obstruction No diverticulitis Intact urinary bladder Transverse prostate dimension 4.0 cm Intact osseous structures IMPRESSION: Fluid distended stomach Negative for gallstones Negative for pancreatitis No renal or ureteral calculi, no hydronephrosis No bowel obstruction Consider hepatobiliary sonography follow-up Dictated By: Garrick Wylie MD Signed By: <Electronically signed by Garrick Wylie MD in [place]> 10/04/25 1148 Medication Administration(s) Medication Administration History Discontinued Medications Ketorolac Tromethamine (Ketorolac Inj 60 Mg/2 Ml Vial) 30 mg IM X1 ONE Stop: 10/04/25 11:21 Last Admin: 10/04/25 15:10 Dose: Not Given Documented By: MARIFER Non-Admin Reason: Duplicate Medication on eMAR Ketorolac Tromethamine (Ketorolac Inj 30 Mg/Ml Vial) 30 mg IM X1 ONE Stop: 10/04/25 14:37 Last Admin: 10/04/25 15:09 Dose: 30 mg Documented By: MARIFRE See above Diagnosis Diagnoses ruled out and/or further discussions: Left chest wall pain
[2025-10-04] MEDS: KETOROLAC INJ 30 MG/ML VIAL IM (15:09)
[2025-10-04 15:13] VITALS: BP 135/81; PULSE 72; RESP 18; TEMP 36.8; O2SAT 98
== END 2025-10-04 15:14 | disposition home or self-care (01) ==
PROVIDERS: Nurse Practitioner Family; Emergency Provider Family Medicine; PCP Family Medicine
DX: S29.011A Strain of muscle and tendon of front wall of thorax, initial encounter (principal); K31.89 Other diseases of stomach and duodenum; R94.31 Abnormal electrocardiogram [ECG] [EKG]
CPT/HCPCS: 36415; 74176; 80053; 81001; 83690; 85025; 87086; 93005; 96372; 99283; J1885